=== PATIENT | male | born 1985 | race African-American/Black ===

== ENCOUNTER 2018-01-08 01:33 | Observation (INO) | payer SELFPAY ==
[~2018-01-08] VITALS: Ht 180.3 cm; Wt 72.7 kg
[2018-01-08] MEDS ORDERED: PROTONIX40 MG PO (01:35)
[2018-01-08] MEDS ORDERED: LEXAPRO10 MG PO (01:35)
[2018-01-08 01:37] VITALS: Ht 180.3 cm; Wt 72.7 kg
[2018-01-08 05:12] LABS: BASOPHILS 0 % (0-2); EOSINOPHILS 0.3 % (0-7); HEMATOCRIT 42.8 % (42.0-54.0); HEMOGLOBIN 15.4 g/dL (13.5-17.5); IMMATURE GRANULOCYTES 0.3 % (0-5); LYMPHOCYTES 11.1 % (15-50); MCH 30.3 pg (26.0-34.0); MCV 84.1 fL (80.0-100.0); MEAN PLATELET VOLUME 9.1 fL (7.4-10.4); MONOCYTES 8.8 % (2-11); NEUTROPHILS 79.5 % (40-80); PLATELET COUNT 311 10x3/uL (130-400); RBC 5.09 10x6/uL (4.20-6.10); RDW 13.6 % (11.5-14.5); WBC 11.5 10x3/uL (4.8-10.8)
[2018-01-08 05:37] LABS: ALBUMIN 4.3 g/dL (3.4-5.0); ALKALINE PHOSPHATASE 52 U/L (46-116); ALT (SGPT) 24 U/L (10-68); BILIRUBIN - TOTAL 0.68 mg/dL (0.2-1.3); CALC OSMOLALITY 277 mosm/kg (275-300); CALCIUM 9.9 mg/dL (8.5-10.1); CARBON DIOXIDE 28.2 mmol/L (21.0-32.0); CHLORIDE - SERUM 102 mmol/L (98-107); CKMB 7.8 U/L (0.0-3.6); CREATINE KINASE 466 UL (21-232); CREATININE - SERUM 1.5 mg/dL (0.6-1.3); GLUCOSE 86 mg/dL (74-106); POTASSIUM - SERUM 3.9 mmol/L (3.5-5.1); PROTEIN - SERUM 8.1 g/dL (6.4-8.2); SODIUM 139 mmol/L (136-145); UREA NITROGEN 16 mg/dL (7-18); eGFR NON AFRICAN AMERICAN 57 mL/min (90-120)
[2018-01-08 05:39] LABS: TROPONIN-I 0.187 ng/mL (0.000-0.060)
[2018-01-08 06:37] VITALS: BP 122/69
[2018-01-08 08:00] VITALS: BP 123/69
[2018-01-08 10:00] VITALS: BP 145/83
[2018-01-08 13:00] VITALS: BP 137/89
[2018-01-08 15:01] VITALS: BP 129/87
[2018-01-08 19:08] VITALS: BP 148/96
== END 2018-01-08 19:30 | disposition short-term general hospital (02) ==
LOC: D.ER 01:33 → D.EDHOLD 04:12 → OBSVTIME 04:12 → D.EDHOLD 04:12
PROVIDERS: Family Medicine
DX: G35 Multiple sclerosis (principal); F15.10 Other stimulant abuse, uncomplicated; F05 Delirium due to known physiological condition; N17.9 Acute kidney failure, unspecified; R00.0 Tachycardia, unspecified; F20.0 Paranoid schizophrenia; F41.8 Other specified anxiety disorders; Z91.19 Patient's noncompliance with other medical treatment and regimen; Z72.0 Tobacco use